=== PATIENT | male | born 2000 | race Caucasian/White ===

== ENCOUNTER 2020-04-14 13:30 | Emergency (ER) | payer BC, SELFPAY ==
[2020-04-14 13:31] VITALS: BP 136/82; PULSE 86; RESP 16; TEMP 36.6; O2SAT 96; BMI 24.5
--- NOTE | 2020-04-14 14:05 | ED.VISSUMM ---
- ER Visit Summary Date of Service: 04/14/20 Chief Complaint: [Laceration to left knee] History of Present Illness: The patient is a 19 M [presents to the emergency department after lacerating his left knee approximately 12:40 PM. Patient states that he jumped off of a short ledge and was holding some things in his hands when he scraped against the ground with his left knee causing a laceration. Patient's been ambulatory since and is not having much pain. Patient thinks his last tetanus was in 2012. Patient denies any other injuries. She has no medical history.] Physical Examination: [HEENT-PERRLA, EOMI. Cranial nerves II through XII grossly intact. TMs clear. Mucous membranes moist. No adenopathy. Cardiovascular-regular rate and rhythm without murmur or ectopy Lungs-clear to auscultation, chest wall stable without crepitus or subcu emphysema Abdomen-normoactive bowel sounds, soft, nontender, no rebound or rigidity, no peritoneal signs. Extremities-intact ?4, normal range of motion, normal pulses. Left knee-patient has a 3 cm laceration over the anterior aspect of the patella that is flap-like into the subcutaneous tissues. Patient has no tenderness over the patella or the knee joint. Patient has normal range of motion in flexion extension. He is neurovascular intact. No evidence of injury to the prepatellar tendon.] Test Results: [None indicated] Emergency Department Course and Treatment: [Laceration repair-wound sterilely draped and prepped. Wound anesthetized locally with 1% lidocaine total sick cc. Wound cleansed with Shur-Clens and irrigated with copious saline. Small amount of particular debris was removed from the wound.] Patient received Adacel tetanus booster. Treatment Plan: [Patient follow-up with primary care physician in 10 days for suture removal. Patient advised to return if increasing pain, redness, swelling, purulent drainage, or condition should worsen in any way.] Disposition: [Discharged home in stable condition] Impression: [Left knee laceration 3 cm-simple repair] This note was generated with [employer] software. It may contain incorrect words, spelling, and punctuation that were not noted in review of the chart prior to signing
--- NOTE | 2020-04-14 14:08 | ED.DEP ---
ED Disposition - Plan for ED Patient: Instructions: ED Laceration Ext Sutr Stap Tape Referrals: Jc Lora MD [STAFF PHYSICIAN] - 10 Day for suture removal
[2020-04-14] MEDS: Diphth,Pertuss(Acell),Tet Vac 0.5 ML Vial IM (14:43)
== END 2020-04-14 15:21 | disposition home or self-care (01) ==
LOC: ED 14:28
PROVIDERS: Emergency Provider Emergency Medicine
DX: S81.012A Laceration without foreign body, left knee, initial encounter (principal); W17.89XA Other fall from one level to another, initial encounter
CPT/HCPCS: 12002; 90471; 90715; 99282